=== PATIENT | female | born 1980 | race Asian ===

== ENCOUNTER 2016-10-27 10:20 | Emergency (ER) | payer BC ==
[~2016-10-27] VITALS: Ht 160 cm; Wt 65.3 kg
[2016-10-27 10:24] VITALS: BP 112/69
[2016-10-27 12:01] LABS: BASOPHIL % 0.3 % (0-2); PLATELET COUNT 245 x10^3mcL (130-400)
[2016-10-27 12:02] LABS: microscopic required? YES; urine erythrocyte 3+ (NEGATIVE)
== END 2016-10-27 14:29 | disposition home or self-care (01) ==
LOC: ED 10:20
PROVIDERS: Specialist
DX: O20.0 Threatened abortion (principal); Z3A.15 15 weeks gestation of pregnancy
CPT/HCPCS: 36415; Q0092